=== PATIENT | female | born 1980 | race Two or more races ===

== ENCOUNTER 2021-05-28 13:10 | Emergency (ER) | payer MEDICAID ==
[~2021-05-28] VITALS: Ht 160 cm; Wt 67.1 kg
[2021-05-28] MEDS ORDERED: TYLENOL (13:25)
[2021-05-28] MEDS ORDERED: IBUP-1096 (13:25)
[2021-05-28] MEDS ORDERED: ATIVAN (13:25)
[2021-05-28] MEDS ORDERED: ADVIL (13:25)
[2021-05-28] MEDS ORDERED: ONDANSETRON 4 MG/2 ML VIAL IV ONE ×2 (14:00→16:00)
[2021-05-28] MEDS ORDERED: ONDANSETRON 4 MG/2 ML VIAL ONE ×2 (14:03→15:58)
[2021-05-28 14:09] LABS: HEMATOCRIT 35.1 % (31.2-41.9); MEAN CORPUSCULAR HEMOGLOBIN 26.2 uug (24.7-32.8); MEAN CORPUSCULAR VOLUME 79.6 fL (75.5-95.3); PLATELET COUNT (AUTO) 204 K/uL (179-408)
[2021-05-28 14:14] LABS: CREATININE 0.9 mg/dL (0.6-1.3); POTASSIUM 3.8 mmol/L (3.5-5.1)
[2021-05-28 14:27] LABS: BILIRUBIN,TOTAL 0.2 mg/dL (0.2-1.0); TOTAL PROTEIN, SERUM 7.7 g/dL (6.4-8.2)
[2021-05-28] MEDS ORDERED: IV NS 1000 ML 1,000 ML IV ONE (15:00)
[2021-05-28 15:31] LABS: *BILIRUBIN,URIN NEGATIVE (NEGATIVE); *BLOOD, URINE 3+ (NEGATIVE); *CLARITY,URINE SLIGHTLY CLOUDY (CLEAR); *COLOR,URINE PINK (YELLOW); *KETONES,URINE NEGATIVE (NEGATIVE); *UROBILINOGEN,URINE 0.2 E.U./dl (NORMAL); LEUKOCYTE ESTERASE ,URINE NEGATIVE (NEGATIVE); NITRITE, URINE NEGATIVE (NEGATIVE); PH,URINE 8.5 (5.0-8.0); UGLUCOSE NEGATIVE (NEGATIVE)
[2021-05-28 15:44] LABS: BACTERIA,URINE NONE SEEN /HPF (NONE SEEN); SQUAMOUS EPITHELIAL CELL,UR MODERATE /HPF (NONE SEEN); WBC,URINE 0-3 /HPF (0-3)
--- NOTE | 2021-05-28 15:54 | NUR ---
IV hydration complete. Pt states tolerating fluids well, then reported new onset of nausea. Provider notified. Medication administered per verbal order.
--- NOTE | 2021-05-28 15:59 | NUR ---
Per provider, will attempt PO trial in approx 30mins post administration of Zofran.
--- NOTE | 2021-05-28 16:44 | NUR ---
Pt states little improvement in nausea post medication administration. Will inform provider.
--- NOTE | 2021-05-28 17:04 | NUR ---
Walking in place trial per provider, lowest SpO2 97%. Pt self ambulated to the restroom afterward.
[2021-05-28] MEDS ORDERED: diphenhydrAMINE 50 MG/1 ML VIAL IV ONE (17:15)
[2021-05-28] MEDS ORDERED: KETOROLAC TROMETHAMINE 30 MG INJ IVP ONE (17:15)
[2021-05-28] MEDS ORDERED: METOCLOPRAMIDE HCL 10 MG/2 ML VIAL IV ONE (17:15)
[2021-05-28] MEDS ORDERED: KETOROLAC TROMETHAMINE 30 MG INJ ONE (17:23)
[2021-05-28] MEDS ORDERED: diphenhydrAMINE 50 MG/1 ML VIAL ONE (17:23)
[2021-05-28] MEDS ORDERED: METOCLOPRAMIDE HCL 10 MG/2 ML VIAL ONE ×2 (17:24)
--- NOTE | 2021-05-28 17:48 | NUR ---
Pt denies any adverse event post medication administration. Pt states no longer having a HAMLIN or nausea at this time. Spoke with spouse on the phone (ok by pt) to give an update in status.
--- NOTE | 2021-05-28 18:24 | NUR ---
Saline lock D/C, clear and intact. Pt continues to deny any pain or nausea at this time. Pt will be D/C home. Spouse awaiting outside for pickup.
[2021-05-28] MEDS ORDERED: ONDA8TAB13 PO (18:42)
--- NOTE | 2021-05-28 18:50 | NUR ---
Patient discharged to home in stable condition. Written and verbal after care instructions given. Patient verbalizes understanding of instructions. Stressed follow up or return to ER for worsening s/s.
[2021-05-28 18:52] VITALS: BP 101/64
== END 2021-05-28 18:50 | disposition home or self-care (01) ==
LOC: ER 13:13
DX: R11.2 Nausea with vomiting, unspecified (principal); R79.89 Other specified abnormal findings of blood chemistry; Z20.822 Contact with and (suspected) exposure to COVID-19; M79.7 Fibromyalgia; Z86.16 Personal history of COVID-19; R06.02 Shortness of breath; D72.819 Decreased white blood cell count, unspecified
CPT/HCPCS: 36415; 71045; 80053; 81001; 82550; 83605; 83615; 83880; 84145; 84484; 84702; 85025; 85379; 86140; 87040; 93005; 96361; 96374; 96375; 99285; J1200; J1885; J2405 ×2; J2765; U0003; 70030-TC; A4663; J7030